=== PATIENT | female | born 1935 | race American Indian/Alaskan Native ===

== ENCOUNTER 2019-10-18 00:12 | Emergency (ER) | payer SELFPAY ==
--- NOTE | 2019-10-18 00:25 | Emergency Department Report ---
HPI - General Time Seen by Provider: 10/18/19 00:20 - HPI HPI: Room 20 The patient is an 84-year-old female present with a chief complaint of cardiac arrest. Per EMS the patient's last known well time was 30 minutes prior to the EMS call. The patient's found the patient unresponsive sitting in a chair slumped over. EMS arrived on scene at 23: 3 to to find the patient in asystole. Patient was intubated and ACLS protocols initiated. Patient was administered 4 rounds of epi prior to arrival. Per EMS the patient remained in asystole throughout contact. In the ED I was uncertain if the patient was intubated endotracheally so the patient's current tube was bypassed and the patient was intubated by myself using a 7.0 ET tube. There was no return of spontaneous circulation ED Past Medical Hx - Surgical History Past Surgical History?: No - Social History Smoking Status: Unknown if ever smoked ED Review of Systems ROS: Stated complaint: CARDIAC ARREST Other details as noted in HPI Comment: Unobtainable due to pts medical conditions Physical Exam - Physical Exam Physical Exam: GENERAL: The patient is well-developed well-nourished female lying on stretcher receiving chest compressions from EMS and being bagged via ET tube HEENT: Normocephalic. Atraumatic. Extraocular motions are intact. Patient has moist mucous membranes. NECK: Supple. Trachea midline CHEST/LUNGS: No spontaneous respirations. No breath sounds auscultated with bagging HEART/CARDIOVASCULAR: No heart sounds. Asystole on monitor ABDOMEN: Abdomen is distended SKIN: There is no diaphoresis. NEURO: GCS 3 T MUSCULOSKELETAL: There is no evidence of acute injury. - Intubation Time Out Performed: No Sedative: none Size: 3 ET Tube Size: 7 Tube Secured Depth (cm): 21 Tube Secured Location: lips Tube Placement Confirmation: confirmation by [employer] Patient Tolerated Procedure: no complications Intubation Complications: none ED Medical Decision Making - Differential Diagnosis Cardiac arrest Critical care attestation.: If time is entered above; I have spent that time in minutes in the direct care of this critically ill patient, excluding procedure time. ED Disposition Clinical Impression: Cardiac arrest Disposition: DC-20 Is pt being admited?: No Does the pt Need Aspirin: No Condition: Poor Time of Disposition: 00:21 (Patient )
[2019-10-18] MEDS ORDERED: SODIUM BICARB 8.4% 50 MEQ/50 ML SYRINGE IV ONE (13:44)
[2019-10-18] MEDS ORDERED: EPINEPHrine 1:10,000 1 MG/10 ML SYRINGE ONE (13:44)
[2019-10-18] MEDS ORDERED: LIDOCAINE PF 100 MG/5 ML (CARDIAC SYRINGE) IV ONE (13:44)
== END 2019-10-18 03:23 ==
LOC: ED 00:12
DX: I46.9 Cardiac arrest, cause unspecified (principal)
CPT/HCPCS: 31500; 92950; 99285; J0171; J2001